=== PATIENT | female | born 1940 | race Caucasian/White ===

== ENCOUNTER 2018-12-09 18:43 | Observation (INO) ==
[2018-12-09] MEDS ORDERED: Ondansetron 4 MG/2 ML VIAL IVP PRN (23:02)
[2018-12-09] MEDS ORDERED: Naloxone 0.4 MG/ML INJ IVP PRN (23:02)
[2018-12-09] MEDS: Acetaminophen 325 MG TABLET PO PRN (23:05)
--- NOTE | 2018-12-09 23:45 | Internal Med History&Physical ---
Date of Encounter: 12/09/18 Time of Encounter: 22:15 Internal Medicine - H&P: HPI Chief complaint: acute dizziness; syncope Admitted From: Hospital to Hospital Transfer Plans for Post Hospital Care: Home History of present illness: Ms. Saha is a 78 year old female who presents in transfer from [facility] ER. Patient reportedly was checking her mail early this morning and returned to the house when she saw and developed acute dizziness and thought the whole room was spinning around her. She fell to the couch and essentially passed out. She was unable to get off the couch without worsening symptoms of dizziness and near syncope. She therefore went to ER for evaluation where she had initial workup, which was negative. She was then transferred to [place] for ongoing care and management. Upon arrival, patient and her daughter confirmed the above history. She complains of a little headache on the right frontal area. She denies any sinus congestion, cough, earache, or sore throat. She has had vertigo before but not this severely. Of note, I reviewed her very limited transfer records from [place] and note that she had significant hypertension upon arrival to the ER there. Her initial blood pressure was 209/99. It has since improved immensely since initial blood pressure reading. She denies any chest pain or shortness of breath, but she has had some palpitations. She denies any prior history of stroke or strokelike symptoms. She denies any focal neurologic deficits such as numbness, weakness, paralysis, numbness, or paresthesias. Her only symptom was vertigo of sudden onset as noted above. Family history is negative for any strokes on both her mother's and father's side. She denies any dysarthria, dysphasia, or any other issues other than subtle headache on the right frontal area and ongoing vertigo symptoms with any position changes. Past Med Surg Social Fam HX - Past Medical History Attestation: Yes The following information was validated with the patient. Source: patient, obtained from family, other (very limited trasnfer records from [place]) Medical history: arthritis, GERD, hypertension Psychiatric history: no psych history - Past Surgical History Surgical History: appendectomy, hysterectomy, knee replacement, orthopedic, other Additional surgical history: T&A, cadaver bones in upper back, Bilat CTR, left TKA, tubal ligation, bilat cornea replacement. - Social History Smoking Status: Never smoker Alcohol use: none Drug use: none Current living situation: Home - Independent Activity Level: Independent ambulation Recent Out of Country Travel Within the Last 8 Weeks: No - Family History Mother Living Status: Hx Family Neurologic Disorders: No Father Living Status: Hx Family Neurologic Disorders: No Internal Medicine - H&P: Meds Atorvastatin 40 mg PO DAILY 12/09/18 [History] Lansoprazole 50 mg PO DAILY 12/09/18 [History] Lisinopril 40 mg PO DAILY 12/09/18 [History] Allergy/AdvReac Type Severity Reaction Status Date / Time codeine Allergy Rash Verified 12/09/18 22:11 Sulfa (Sulfonamide Allergy Rash Verified 12/09/18 22:11 Antibiotics) - Constitutional Constitutional: no chills, no fever(s), no night sweats - EENT Eyes: change in vision, no blurry vision, no loss of peripheral vision, no loss of vision Ears: no ear pain, no tinnitus Nose, mouth and throat: no nasal congestion, no sinus pressure, no sore throat - Cardiovascular Cardiovascular ROS IM: lightheadedness, palpitations, syncope, no chest pain, no diaphoresis, no dyspnea, no paroxysmal nocturnal dyspnea - Respiratory Respiratory: no cough, no dyspnea, no dyspnea on exertion, no wheezing, no chest congestion, no pain with cough - Gastrointestinal Gastrointestinal: no abdominal pain, no diarrhea, no hematemesis, no hematochezia, no melena, no nausea, no vomiting - Genitourinary Genitourinary: no dysuria, no flank pain, no hematuria - Musculoskeletal Musculoskeletal ROS IM: arthralgias, limited range of motion (shoulders), no back pain - Neurological Neurological ROS: disequilibrium, dizziness, headache(s) (frontal ), vertigo, no confusion, no focal weakness, no frequent falls, no numbness, no paresthesias, no tingling, no weakness - Psychiatric Psychiatric: no anxiety, no depression - Endocrine Endocrine IM: no cold intolerance, no heat intolerance, no polydipsia, no polyuria - Allergic/Immunologic Allergic/Immunologic: no wheezing, no GI upset with certain foods - Constitutional Vitals: Temp Pulse Resp BP Pulse Ox 98.0 F 64 14 149/73 93 12/09/18 23:26 12/09/18 23:26 12/09/18 23:26 12/09/18 23:26 12/09/18 23:26 General appearance: Present: cooperative, mild distress (due to vertigo), A&O X 3, pleasant, answers questions appropriately Exam: see below - Head Head exam: Present: atraumatic, normal inspection - Eye Eye exam: Present: EOMI, PERRL. Absent: scleral icterus Pupils: Present: normal accommodation - ENT ENT exam: Present: mucous membranes dry, normal exam, normal oropharynx Additional comments: no frontal or maxillary sinus tenderness - Neck Neck exam general surgery: Present: full ROM, supple, trachea midline. Absent: lymphadenopathy, tenderness, nuchal rigidity, thyromegaly - Expanded Neck Exam Neck exam: Absent: carotid bruit - Respiratory Respiratory exam: Present: CTAB. Absent: chest wall tenderness, rales, rhonchi, wheezes - Cardiovascular Cardiovascular exam: Present: RRR, +S1, +S2, systolic murmur (grade 2-3). Absent: diastolic murmur - GI/Abdominal GI/Abdominal exam: Present: normal bowel sounds, soft. Absent: guarding, hepatomegaly, mass, rebound, splenomegaly, tenderness - Extremities Exam Extremities exam: Present: full ROM, normal capillary refill, warm, radial pulses palpable and symmetrical. Absent: calf tenderness, joint swelling, pedal edema, tenderness - Back Exam Back exam: Absent: CVA tenderness (L), CVA tenderness (R) - Neurological Exam Neurological exam: Present: alert, CN II-XII intact, oriented X3, no focal deficits, strengths equal and symetr throughout. Absent: motor sensory deficit, facial droop, speech deficit Additional comments: + nystagmus and recreation of vertigo with position changes hard of hearing - chronic - Psychiatric Psychiatric exam: Present: normal affect, normal mood - Skin Skin exam: Present: dry, intact, warm Internal Med - H&P Results - Labs Labs: Reviewed her labs from [place] and include the following: Sodium 138 Potassium 4.2 Chloride 101 Carbon dioxide 28 Glucose 121 BUN 18 Creatinine 0.71 WBC 10.7 Hemoglobin 13.9 Hematocrit 41 Platelets [address] I see no EKG or the labs and the transfer packet. - Assessment and Plan (1) Vertigo Current Visit: Yes Status: Acute Assessment and plan: 1. Suspect BPV; however, consider TIA/CVA. 2. Will proceed with stroke work-up including MRI brain, Carotid Dopplers, and ECHO. 3. Neurochecks per protocol. 4. Will try Meclizine PRN vertigo symptoms. (2) Syncope Current Visit: Yes Status: Acute Assessment and plan: 1. Likely related to Vertigo symptoms. 2. Will monitor glucose, telemetry. 3. Will obtain baseline EKG. 4. Work-up as above. Qualifiers: Syncope type: unspecified Qualified Code(s): R55 - Syncope and collapse (3) Hypertension Current Visit: Yes Status: Chronic Assessment and plan: 1. Monitor BP closely. 2. Resume home meds when necessary once home meds confirmed. Qualifiers: Hypertension type: essential hypertension Qualified Code(s): I10 - Essential (primary) hypertension (4) DVT prophylaxis Current Visit: Yes Status: Acute Assessment and plan: 1. Heparin SQ.
[2018-12-10] MEDS: 0.9 % Sodium Chloride 1,000 ML IVC SCH ×2 (00:44→14:05)
[2018-12-10 01:13] LABS: Bilirubin,Urine Negative (Negative); Blood,Urine Negative (Negative); Clarity,Urine Clear (Clear); Color,Urine Yellow (Yellow); Glucose,Urine (UA) Normal (Normal); Ketones,Urine Negative (Negative); Leukocyte Esterase,Urine Trace (Negative); Nitrite,Urine Negative (Negative); PH,Urine 6.5 pH Units (5.0-8.0); Protein,Urine Negative (Neg-Trace); Specific Gravity,Urine 1.014 (1.010-1.025); Urobilinogen,Urine Normal (Normal)
[2018-12-10 01:16] LABS: Bacteria,Urine None Seen per hpf (None-Few); Hyaline Casts,Urine None Seen per lpf (None-Few); RBC,Urine 0-3 per hpf (0-3); Squamous Epithelial Cell,Urine Moderate per lpf (None-Few); WBC,Urine 0-3 per hpf (0-3)
[2018-12-10] MEDS: *HR* Heparin 5,000 UNIT/ML VIAL SQ SCH ×2 (04:24→18:25)
[2018-12-10 07:23] LABS: Basophils % 0.6 %; Eosinophils # 0.2 K/mcL (0.0-0.6); Eosinophils % 3.6 %; Hematocrit 37.5 % (35.3-44.9); Hemoglobin 12.3 g/dL (11.5-15.4); Immature Granulocytes % 0.2 % (0-4); Lymphocytes # 2.7 K/mcL (0.6-4.6); Lymphocytes % 41.4 %; Mean Corpuscular HGB Conc 32.8 g/dL (31.6-35.5); Mean Corpuscular Hemoglobin 31.1 pg (28.0-33.3); Mean Corpuscular Volume 94.9 fL (83.0-100.0); Mean Platelet Volume 11.1 fL (9.4-12.4); Monocytes # 0.4 K/mcL (0.0-1.3); Monocytes % 6.7 %; Neutrophils # 3.1 K/mcL (1.6-8.9); Platelet Count 178 K/mcL (140-400); Red Blood Count 3.95 M/mcL (3.82-4.97); Red Cell Distribution Width 13.2 % (11.5-14.5); Segmented Neutrophils % 47.5 %
[2018-12-10 07:25] LABS: Alanine Aminotransferase 16 Units/L (7-52); Albumin/Globulin Ratio 1.7 (1.1-2.2); Alkaline Phosphatase 67 Units/L (34-104); Aspartate Amino Transferase 15 Units/L (13-39); BUN/Creatinine Ratio 18 (6-26); Bilirubin,Total 0.5 mg/dL (0.3-1.0); Blood Urea Nitrogen 12 mg/dL (8-23); Calcium 9.7 mg/dL (8.6-10.3); Carbon Dioxide 29 mEq/L (23-29); Chloride 107 mEq/L (98-107); Chol/HDL Ratio 2.5 (0-4.9); Cholesterol 142 mg/dL (< 200); Globulin 2.3 g/dL (2.4-3.5); Glucose 104 mg/dL (70-105); HDL Cholesterol 56 mg/dL (40-59); LDL Cholesterol,Calculated 72 mg/dL (0-99); Magnesium 2.1 mg/dL (1.6-2.6); Osmolality,Calculated 296 (280-300); Sodium 143 mEq/L (136-145); Total Protein 6.3 g/dL (6.4-8.9); Triglycerides 68 mg/dL (< 150); eGFR For Non-African Americans > 60 (> 60)
[2018-12-10 08:27] LABS: Estimated Average Glucose 134 mg/dl; Hemoglobin A1C 6.3 %
[2018-12-10] MEDS: Acetaminophen 325 MG TABLET PO PRN (11:26)
[2018-12-10] MEDS: Aspirin Enteric Coated 81 MG Tablet PO SCH (11:26)
--- NOTE | 2018-12-10 13:33 | Internal Med Progress Note ---
Hospitalist Progress Note - Encounter Date of Encounter: 12/10/18 Time of Encounter: 13:29 - Subjective Interval History: Ms. Saha is a 78 year old female with a known past the history of hypertension, arthritis and GERD pt presented to [facility] ER with vertigo symptoms and dizziness. Pt was sent to our hospital for further care. Patient reportedly was checking her mail early this morning and returned to the house when she saw and developed acute dizziness and thought the whole room was spinning around her. She fell to the couch and essentially passed out. Her initial blood pressure was 209/99. She was admitted in the hospital and placed on manager monitoring. She denied any vertigo now. She denied any more syncopal episodes. Patient stated she still feeling very weak and lethargic as well as lightheadedness. She denied any CP / SOB. - Exam Vitals: Temp Pulse Resp BP Pulse Ox 97.5 F L 67 16 157/74 95 12/10/18 11:36 12/10/18 11:36 12/10/18 11:36 12/10/18 11:36 12/10/18 11:36 Exam: Gen: Alert, awake, Oriented to time,place and person Chest: Diminished breath sounds B/L, No wheezing, No crackles, No rales Heart: S1S2+ RRR No murmurs Abd: Soft, NT, BS +, No organomegaly Ext: No edema, pulses are palpable, No calf tenderness Neuro : No acute focal neuro deficits noticed other than generalized weakness Skin: No rash. - Assessment and Plan (1) Vertigo Current Visit: Yes Status: Acute Assessment and Plan: Mostly due to dehydration as well as due to BPV Her MRI came back as negative for ischemia/infarction her carotid Doppler showed bilateral ICA's have a 60-79% stenosis Cont IV hydration Cont Meclizine as scheduled for now Cont ASA and Statin (2) Carotid artery stenosis Current Visit: Yes Status: Acute Assessment and Plan: Carotid doppler showed : bilateral ICA's have a 60-79% stenosis. Recommend out pt f/u with Vascular surgery as an out pt (3) Syncope Current Visit: Yes Status: Acute Assessment and Plan: Most likely due to orthostatic hypotension/ vaso vagal cont on tele reviewed 2 D Echo - Preserved LVEF cont supportive care IV hydration check daily orthostatic vitals (4) Hypertension Current Visit: Yes Status: Chronic Assessment and Plan: Stable blood pressure now continue home medications (5) DVT prophylaxis Current Visit: Yes Status: Acute Assessment and Plan: on Heparin SQ. - Time Spent with Patient Total time spent is greater than 50% in coordination of care (as documented) at patient's floor/unit and/or counseling patient: Internal Medicine: Result - Labs CBC & Chem 7: 12/10/18 06:27 12/10/18 06:27 Labs: Short CBC 12/10/18 Range/Units 06:27 WBC 6.4 (4.3-11.1) K/mcL Hgb 12.3 (11.5-15.4) g/dL Hct 37.5 (35.3-44.9) % Plt Count 178 (140-400) K/mcL Neutrophils # 3.1 (1.6-8.9) K/mcL BMP 12/10/18 06:27 Sodium 143 Potassium 4.0 Chloride 107 Carbon Dioxide 29 BUN 12 Creatinine 0.67 Glucose 104 Calcium 9.7 Liver Function 12/10/18 Range/Units 06:27 Total Bilirubin 0.5 (0.3-1.0) mg/dL AST 15 (13-39) Units/L ALT 16 (7-52) Units/L Alkaline Phosphatase 67 (34-104) Units/L Albumin 4.0 (3.5-5.7) g/dL Urine 12/10/18 Range/Units 00:45 Urine Color Yellow (Yellow) Urine Clarity Clear (Clear) Urine pH 6.5 (5.0-8.0) pH Units Ur Specific Sasser 1.014 (1.010-1.025) Urine Protein Negative (Neg-Trace) mg/dL Urine Glucose (UA) Normal (Normal) mg/dL - Impressions Impressions Brain MRI 12/09/18 23:02 IMPRESSION: No acute intracranial abnormality. 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 Sinus mucosal disease. D/ / Dennis Varela MD / Dennis Varela MD Interpreting Provider: Dennis Varela MD Echocardiogram 12/10/18 23:06 Impressions: LVEF 65%. Basal sigmoid septum. Mild left ventricular diastolic dysfunction. Moderately dilated left atrium. Normal right ventricular structure and function. Mild aortic stenosis. Mild-moderate tricuspid regurgitation. Mild pulmonary hypertension. Left Ventricular Wall Motion: Rest Echo Findings All wall segments showed normal motion. Findings: Study Quality * Technically adequate exam. ECG Findings * Normal sinus rhythm. Left Ventricle * LVEF 65%. * Normal LV chamber size and systolic function. * Basal sigmoid septum. * Mild left ventricular diastolic dysfunction. Right Ventricle * Normal right ventricular structure and function. Left Atrium * Moderately dilated left atrium. Right Atrium * Normal right atrial size. Interatrial Septum * Interatrial septum not well evaluated. * No evidence of PFO by color Doppler. Aortic Valve * Trileaflet aortic valve. * Moderately calcified aortic valve leaflets. * Mild aortic stenosis. * Peak and mean gradients are 16 mmHg, respectively. * No aortic regurgitation. Mitral Valve * Normal mitral valve structure. * No mitral stenosis. * Trace mitral regurgitation. Tricuspid Valve * Normal tricuspid valve structure. * No tricuspid stenosis. * Mild-moderate tricuspid regurgitation. * Estimated RVSP is 48 mmHg. * Estimated RA pressure is 8 mmHg. * Mild pulmonary hypertension. Pulmonic Valve * Pulmonic valve is not well visualized. * No pulmonic stenosis. * No pulmonic regurgitation. Aorta * Normally sized aortic root. Pericardium * The pericardium appears normal. IVC * The IVC is dilated. * > 50% respiratory change Consult Discharge Plan - Plan Referrals: NONE,PCP [Primary Care Provider] - (3) Syncope Qualifiers: Syncope type: unspecified Qualified Code(s): R55 - Syncope and collapse (4) Hypertension Qualifiers: Hypertension type: essential hypertension Qualified Code(s): I10 - Essential (primary) hypertension
[2018-12-10] MEDS: Lisinopril 20 MG TABLET PO SCH (13:54)
--- NOTE | 2018-12-10 21:27 | Electrocardiograph Report ---
[address] [place] [address] Test Date: 2018-12-10 Pat Name: Gema Saha Department: 113 Room: 3B43 Gender: F Pharmacy Intake Technician: : 1940 Requested By: Joe Love Order Number: [id number] Reading MD: Jose Wilson Measurements Intervals [place] Rate: 66 P: 38 AK: 196 QRS: -14 QRSD: 113 T: 23 QT: 421 QTc: 434 Interpretive Statements SINUS RHYTHM INFERIOR MYOCARDIAL INFARCTION, PROBABLY OLD Electronically Signed On 12-10-2018 21:25:53 EDT by Jose Wilson
[2018-12-11] MEDS: *HR* Heparin 5,000 UNIT/ML VIAL SQ SCH (05:34)
[2018-12-11] MEDS: Lisinopril 20 MG TABLET PO SCH (08:25)
[2018-12-11] MEDS: Aspirin Enteric Coated 81 MG Tablet PO SCH (08:25)
--- NOTE | 2018-12-11 10:36 | Discharge Summary ---
<Jani Milligan - Last Filed: 12/11/18 10:31> - NOTES TO OUTPATIENT PROVIDER Notes to Outpatient Provider: Changing lisinopril dosing to 20mg BID to help avoid any hypotensive episodes Date of Encounter: 12/11/18 Time of Encounter: 10:31 - Discharge Diagnosis (1) Vertigo Priority: Primary Status: Acute (2) Syncope Priority: Secondary Status: Acute Qualifiers: Syncope type: unspecified Qualified Code(s): R55 - Syncope and collapse (3) Hypertension Priority: Secondary Status: Chronic Qualifiers: Hypertension type: essential hypertension Qualified Code(s): I10 - Essential (primary) hypertension (4) Carotid artery stenosis Priority: Secondary Status: Acute Qualifiers: Laterality: bilateral Qualified Code(s): I65.23 - Occlusion and stenosis of bilateral carotid arteries (5) DVT prophylaxis Priority: Secondary Status: Acute Hospital course: Ms. Saha is a 78 year old female with PMH of HTN, OA, and GERD, presented to [facility] ER with vertigo symptoms and dizziness. Transferred to [facility] for further care. Patient reportedly was checking her mail early one morning and returned to the house when she developed acute dizziness and thought the whole room was spinning around her. She fell to the couch and essentially passed out. Her initial blood pressure was 209/99. She was admitted in the hospital and placed on residential monitor. She denied any vertigo now. She denied any more syncopal episodes. Patient stated she was feeling very weak and lethargic as well as lightheadedness, but her symptoms have resolved. She denied any CP / SOB. MRI of the head was negative for ischemia or infarction. Carotid Doppler showed bilateral ICA stenosis 60-79%. She can follow up outpatient with vascular surgery for this. Echo with preserved EF of 65%, mild LV diastolic dysfunction, moderately dilated left atrium, mild , mild-moderate TR. It appears that her syncope was likely due to orthostatic hypotension or BPPV, and her elevated BP was a response to that syncope. Recommend splitting her lisinopril to BID dosing to avoid any low BP's. She will be given meclizine to use for vertigo-like symptoms as needed. She is hemodynamically stable and can be discharged home. Discharge discussed with: patient, family - Time Spent with Patient Total time spent providing and/or coordinating discharge services: - Discharge Medications Prescriptions: New Meclizine [Antivert] 12.5 mg PO TID PRN #90 tablet PRN Reason: Dizziness Aspirin Enteric Coated [Aspirin EC] 81 mg PO DAILY #30 tablet. Continued Atorvastatin [Lipitor] 40 mg PO QAM Cholecalciferol (Vitamin D3) [Vitamin D3] 1,000 unit PO DAILY Cyanocobalamin (Vitamin B-12) [Vitamin B-12] 1,000 mcg PO DAILY Lansoprazole [Prevacid] 30 mg PO QAM Multivit-Min/FA/Lycopen/Lutein [Centrum Silver Tablet] 1 tab PO DAILY Changed Lisinopril [Zestril] 20 mg PO BID #0 Discontinued Lisinopril 40 mg PO DAILY Home Medications: Aspirin Enteric Coated [Aspirin EC] 81 mg PO DAILY #30 tablet. 12/11/18 [Rx] Atorvastatin [Lipitor] 40 mg PO QAM 12/11/18 [History] Cholecalciferol (Vitamin D3) [Vitamin D3] 1,000 unit PO DAILY 12/11/18 [History] Cyanocobalamin (Vitamin B-12) [Vitamin B-12] 1,000 mcg PO DAILY 12/11/18 [History] Lansoprazole [Prevacid] 30 mg PO QAM 12/11/18 [History] Lisinopril [Zestril] 20 mg PO BID #0 12/11/18 [Rx] Meclizine [Antivert] 12.5 mg PO TID PRN #90 tablet 12/11/18 [Rx] Multivit-Min/FA/Lycopen/Lutein [Centrum Silver Tablet] 1 tab PO DAILY 12/11/18 [History] Allergies/Adverse Reactions: Allergy/AdvReac Type Severity Reaction Status Date / Time codeine Allergy Rash Verified 12/11/18 11:13 Sulfa (Sulfonamide Allergy Rash Verified 12/11/18 11:13 Antibiotics) Date of admission: 12/09/18 22:01 Primary care physician: PCP NONE Discharging clinician: Jani Milligan Anticipated date of discharge: 12/11/18 - Constitutional Vitals: Temp Pulse Resp BP Pulse Ox 98.3 F 66 15 158/88 95 12/11/18 06:47 12/11/18 06:47 12/11/18 06:47 12/11/18 06:47 12/11/18 06:47 Exam: GEN: No acute distress, A&O3 HEAD: Atraumatic, normocephalic EYES: Pupils symmetric, sclera white, conjunctiva pink HEART: RRR, normal S1 and S2, no murmurs LUNGS: Respirations non-labored ABD: Soft, nontender, nondistended EXT: No edema noted, pulses 2/4 NEURO: No focal deficits, cooperative with exam - Patient Status Disposition: Home, Self-Care Condition: Fair Overall status at discharge: patient is progressing back to baseline - Discharge Instructions Follow Up With: Gabriel Martinez MD [Partnered Physician] - (APPOINTMENT HAS BEEN REQUESTED) NONE,PCP [Primary Care Provider] - Additional Instructions: Please take lisinopril twice daily as prescribed - you may use the 40mg tablets that you have and split them in half - or use the new prescription provided for 20mg tablets, taking one tablet twice daily Use may meclizine as needed for dizziness Please remain well hydrated Please follow-up with vascular surgery in the next 1-2 months Please follow-up with your primary care physician in 1-2 weeks Please seek medical attention if your symptoms return or worsen PLEASE CALL [phone] AND ESTABLISH A PRIMARY CARE PROVIDER - Diet and Activity Activity: increase activity as tolerated Diet: advance to your usual diet <Ricardo Jain - Last Filed: 12/11/18 12:18> Date of Encounter: 12/11/18 Date of admission: 12/09/18 22:01 Primary care physician: PCP NONE - Patient Status Functional capacity at discharge: independent ambulation - Attending Attestation Patient seen and examined. I agree with the discharge plan as documented above by the resident. Pt presents with clearly described orthostatic symptoms that occurred a few hours after taking her AM lisinopril. TIA eval here (MRI brain, TTE, and carotids) remarkable only for b/l distal internal carotid artery stenosis which likely contributes to her symptoms. Patient was rehydrated, her lisinopril dose split into twice daily dosing, and referral to outpatient VascSurg made.
[2018-12-11 10:56] VITALS: BP 161/75
== END 2018-12-11 11:52 | disposition home or self-care (01) ==
LOC: 3BNU → SUATTDRO 22:01
PROVIDERS: ADMIT Internal Medicine Nephrology; ATTEND Family Medicine